=== PATIENT | male | born 1955 | race Caucasian/White ===

== ENCOUNTER 2024-06-02 10:14 | Inpatient (IN) | payer MEDICARE, SELFPAY ==
[2024-06-02] VITALS (54 sets, daily range): BP systolic 111–236; BP diastolic 30–102; BMI 38.2
[2024-06-02 09:31] LABS: Glucose - Point of Care 140 mg/dl (70-99)
[2024-06-02 09:33] LABS: Glucose - Point of Care 144 mg/dl (70-99)
--- NOTE | 2024-06-02 09:33 | ED.CVA ---
History of Present Illness
General
Chief Complaint: CVA/TIA Symptoms
Source: patient and spouse
Exam Limitations: none
Time Seen by Provider: 06/02/24 09:25
Nursing documentation reviewed up to this point in time: agreed with
Onset of Stroke Symptoms
Onset of symptoms known: No
Time pt last seen normal is known: Yes
Date last time pt seen normal: 06/01/24
Time last time pt seen normal: 22:00
History of Present Illness
History of Present Illness:
68-year-old male with no reported chronic medical issues presents to the ER with his for evaluation of facial droop, slurred speech, leg weakness. Patient reports that he was in his normal state of health when he went to bed last night around
10 PM. This morning he woke up at 6:30 AM to walk his dogs. He noticed that he was having some numbness and drooping on the left side of the face. He says he had some heaviness in his left leg. He noticed his speech was slightly slurred. He
thought that perhaps it was related to the position he was sleeping in and so he went to walk the dogs and when his symptoms were not improving he disclosed to his who brought him to the ER to be evaluated. He denies any weakness or numbness
in the left arm. Denies any headache. Denies any loss of vision. Denies any dizziness. He denies any other complaints. Does not take any medications.
Review of Systems
Review of Systems
All Other Systems: ROS reviewed and negative except as documented in HPI and ROS
Respiratory: Denies trouble breathing
Cardiac: Denies chest pain or palpitations
ABD/GI: Denies abdominal pain
: Denies flank pain
Musculoskeletal: Denies neck pain or back pain
Neurological: Reports other (Facial droop, speech slurred, left leg weakness); Denies dizzy or headache
Phy Exam
Physical Exam
Physical Exam:
General: Awake, alert, oriented x3
Head: Normocephalic, atraumatic
Eyes: Conjunctiva normal, EOMI, pupils equal round and reactive to light bilaterally
Throat: Airway intact, handling secretions
Neck: Trachea midline, supple without meningismus
Lungs: Clear to auscultation bilaterally, no wheezing, rales, rhonchi
Heart: Regular rate and rhythm, no murmurs, gallops, or rubs
Abd: Soft, non distended, nontender
Neuro: Patient has left facial droop spares the forehead; cranial nerves otherwise intact; mild dysarthria no aphasia noted; no limb ataxia noted; he has some drift in the left lower extremity but strength otherwise intact in the upper extremities
and in the right lower extremity; sensory exam grossly intact in all extremities
Skin: no rash
Extremities: Warm and well-perfused
Scores
NIH Stroke Score
Level of Consciousness: 0 - Alert
LOC Questions: 0-Answers both correctly
LOC Commands: 0-Performs both correctly
Best Horizontal Gaze: 0-Normal
Visual Steward: 0=Normal, no visual loss
Facial Palsy: 1=Minor paralysis
Motor - Right Arm: 0=No drift 10 seconds
Motor - Left Arm: 0=No drift 10 seconds
Motor - Right Le-No drift 5 seconds
Motor - Left Le-Drift < 5 seconds
Limb Ataxia: 0-Absent
Sensation: 0-Normal
Best Language: 1-Mild aphasia
Dysarthria: 0-Normal
Extinction and Inattention: 0-No abnormality
Total Score:: 3
Thrombolytic Contraindication
Inclusion and Exclusion criteria reviewed: Yes
Reasons for NON-Tx with Thrombolytics ABSOLUTE Exclusions: Greater than 4.5 hrs from onset of sxs and Evidence of intracranial hemorrhage on pre-treatment CT head
Heart Failure Risk
Heart Failure Risk Score: Not Applicable
Heart Score for Chest Pain Patients
STEMI patient?: Not applicable
Withdrawal Assessment of Alcohol
Withdrawal Assessment Completed?: Not applicable
Course
Orders/Labs/Results
Orders:
Orders
06/02/24 09:26
Electrocardiogram (*1) Stat
Reason for Study: Other
Other Reason for Exam: neuro symptoms
CT HEAD STROKE ALERT W/o Cont Urgent
Comment:
Reason For Exam: left facial droop, slurred speech, LLE weaknesss
Bedside Glucose- Treatment ONCE
Cardiac Monitoring- Treatment ONCE
EKG- Treatment ONCE
IV Insert/Care/Rem.- Treatment PRN
Labetalol HCl [Trandate] 10 mg IV NOW STA
06/02/24 09:27
NEUROLOGY CONSULT Urgent
Consulting Provider: Greer Reed
Was physician already notified: Yes
06/02/24 09:29
Complete Blood Count/With Diff Urgent
Comprehensive Metabolic Panel Urgent
06/02/24 09:40
Hemoglobin A1c [Glycohemoglobin (HgbA1c)] Urgent
Lipid Profile [Cardiovascular Evaluation] Urgent
06/02/24 09:43
Nicardipine 40 mg/200 ml [Cardene] 40 mg in 200 ml .ROUTE .STK-MED
Nicardipine 40 mg/200 ml [Cardene] 40 mg in 200 ml IV NOW
Initial dose in mg/hr, then titrate:: 5
Titrate to keep:: SBP 120 - 140 mmHg
Titrate by mg/hr:: 2.5 mg/hr
Frequency of titrations (minutes):: 5-15 minutes
Maximum dose in mg/hr:: 15
Begin to taper infusion when:: Remained at goal for 2hrs
Taper by mg/hr:: 2.5 mg/hr
Frequency of taper (minutes) if patient maintains goal:: 15-30 minutes
Taper to off?: Yes
If infusion off & no longer maintaining goal:: Contact Provider
Abnormal Lab Results
06/02/24 06/02/24 06/02/24
09:29 09:31
RBC 4.69 L 10^6/uL
(4.70-6.10)
MCV 96.8 H fL
(80.0-94.0)
MCH 36.0 H pg
(27.0-31.0)
MCHC 37.2 H g/dL
(33.0-37.0)
POC Glucose 140 H mg/dl 144 H mg/dl
(70-99) (70-99)
06/02/24 09:29
Vital Signs
Initial and Last Documented VS:
Initial Vital Signs
Temp Pulse Resp BP Pulse Ox
37.1 C 88 16 236/100 96
06/02/24 09:22 06/02/24 09:22 06/02/24 09:22 06/02/24 09:22 06/02/24 09:22
Last Documented Vital Signs
Temp Pulse Resp BP Pulse Ox
37.1 C 88 16 236/100 96
06/02/24 09:22 06/02/24 09:22 06/02/24 09:22 06/02/24 09:22 06/02/24 09:22
MDM/Problems Addressed
Differential Diagnosis Includes:
Stroke, brain bleed, complex migraine, seizure, hypertensive crisis
MDM/Problems Addressed:
68-year-old male with history as noted presents for evaluation of facial droop with left leg weakness, slurred speech. Last normal at 10 PM before bed last night, woke up with symptoms at 6:30 AM. Severely hypertensive 236/100 otherwise normal
vitals. Physical exam as above. Stroke alert called on arrival. Assessed at bedside in consultation with neurology. Will take directly for CT head as well as a CTA head and neck. Will check usual lab work, EKG. Treat with labetalol for severe
hypertension. NIH stroke scale was 3, unfortunately with wake-up stroke outside window for tenecteplase�hold on thrombolytics per neurology. Will monitor closely reassess after the above.
CT reviewed in real-time with neurology�concerning for basal ganglion intraparenchymal hemorrhage. Still hypertensive after labetalol; will start Cardene drip for blood pressure control. Per hospital guidelines with no intraventricular hemorrhage,
normal GCS not on anticoagulants small basal ganglia bleed will plan to admit to the ICU here. Discussed case with hospitalist.
Acute Exacerbation and/or Progression of Chronic Illness:
Acutely hypertensive treated with labetalol
*Radiology
Radiology exam reviewed: radiology read reviewed
*Pulse Oximetry
Patient hypoxic: no
*EKG
Interpreted by ED Provider?: Yes
Heart Rate: 74
Rate: normal
Rhythm: sinus
[place]: left axis deviation
Interval: long QT
QRS Pattern: left vent hypertrophy
Ischemia: other (Nonspecific T wave abnormalities)
*Critical Care Note
Total Time (30-74mins, 75-104mins- exclusive of procedures): 30
comment:
Critical care statement: A total of 30 minutes of critical care time was provided for this patient. This includes management of unstable vital signs, evaluation of the patient at bedside, frequent reassessment, discussion with
consultants/hospitalist, and review of pertinent medical records. This time was separate from time utilized to perform any aforementioned documented procedures
Data Reviewed
Source: patient and spouse
Prescriptions/Medications Considered But Not Given:
Considered tenecteplase as above
Patient Management
Discussion with other providers: Hospitalist (Discussed with hospitalist), Credit Verifier (Discussed with neurology) and Radiologist (Discussed with radiology)
Escalation/DeEscalation of care consider admission/obs:
Admission indicated
Update Note
Update Note:
ED Attending Note
-
Portions of this chart may have been created with voice recognition software.� Occasional wrong word or��sound alike� substitutions may have occurred due to the inherent limitations of voice recognition software.
Discharge Plan
Departure
Patient Disposition: Admit
Date of Disposition: 06/02/24
Time of Disposition: 09:53
Admit to: ICU
Admit to doctor: Janay
Presentation/result/management discussed w/ accepting MD/DO: Hospitalist
Discharge Problem:
Intraparenchymal hemorrhage of brain, Hypertension, Hemorrhagic stroke
Prescriptions:
No Action
No Current Medications
0
Interventions
Interventions:
*Risk Screen - Suicide Last Done: 06/02/24 09:22
*General Assessment Last Done: 06/02/24 09:24
*ED COVID-19 Vaccine History Last Done: 06/02/24 09:22
ED- Pulmonary Assessment Last Done: 06/02/24 09:53
ED- Neurological Assessment Last Done: 06/02/24 09:31
ED- Cardiac Assessment Last Done: 06/02/24 09:52
Discharge Date and Time
Print Language: AFGHAN
[2024-06-02] MEDS: TRANDATE 10 MG IV (09:35)
[2024-06-02 09:43] LABS: % Basophils 0.5 % (0-2); % Eosinophils 1.1 % (0-6); % Immature Granulocytes 0.2 % (0-0.5); % Lymphocytes 28.2 % (20.5-51.1); % Monocytes 6.6 % (1.7-9.3); % Neutrophils 63.4 % (42.2-75.2); Absolute Eosinophils 0.1 10^3/uL (0-0.7); Absolute Lymphocytes 2.4 10^3/uL (1.2-3.4); Absolute Monocytes 0.6 10^3/uL (0.1-0.6); Absolute Neutrophils 5.3 10^3/uL (1.4-6.5); Hematocrit 45.4 % (39.0-52.0); Hemoglobin 16.9 g/dL (13.0-18.0); Mean Corp Hgb Conc. 37.2 g/dL (33.0-37.0); Mean Corpuscular Volume 96.8 fL (80.0-94.0); Mean Platelet Volume 8.4 fL (7.4-10.4); Nucleated Red Blood Cells % 0 % (-); Platelet Count 206 10^3/uL (130-400); Red Blood Cell Count 4.69 10^6/uL (4.70-6.10); Red Cell Dist. Width 11.9 % (11.5-14.5); White Blood Cell Count 8.4 10^3/uL (4.8-10.8)
[2024-06-02] MEDS: CARDENE 200 IV ×2 (09:51→16:50)
--- NOTE | 2024-06-02 10:12 | HPS.HSE ---
Family Physician
-
Family Physician: INTERVIEWE UNKNOWN - PT NOT
Chief Complaint
-
Left facial droop
History of Present Illness
60-year-old male with no past medical history on no medications at home who presents with a chief complaint of right facial droop. The patient woke up this morning with a left facial droop and difficulty speaking due to the left facial droop.
Patient denies any left-sided weakness although the patient's reports that his left lower extremity was weak. He denies chest pain, shortness of breath, headache, lightheadedness, nausea, vomiting, diarrhea. No other acute symptoms.
Medical History
Past Medical History
Past Medical History: Reports None
Past Surgical History: Reports Other (N/A)
Social History
Tobacco: Former Smoker
Alcohol: Occasional
Drug: None
Family History
Family History: Not pertinent
Allergies / Home Medications
Allergies reflects when Allergies were last updated in [employer].
Home Medications with original date entered in [employer]
Allergy/Medication List:
Allergies
Allergy/AdvReac Type Severity Reaction Status Date / Time
No Known Allergies Allergy Unverified 06/02/24 09:24
Home Medications
No Meds [No Current Medications] 06/02/24
Review of Systems
-
History Source: Patient
A 12 point ROS was completed and negative except as noted: Yes
Physical Exam
Vital Signs
Vital Signs
Temp Pulse Resp BP Pulse Ox
98.8 F 79 32 206/81 91
06/02/24 09:22 06/02/24 10:00 06/02/24 10:00 06/02/24 10:00 06/02/24 10:00
Physical Exam
General: Other (.)
Laboratory Results
-
06/02/24 09:29
Impression/Plan
-
Gen: NAD, AAOx3.
Eyes: EOMI, PERRLA, no scleral icterus.
Neck: supple.
CV: RRR, +S1/S2, no m/r/g.
Resp: CTAB, no rales, wheezes, or rhonchi.
Abd: +BS, soft, NT, ND
Skin: No rashes.
Neuro: L-facial droop. 5/5 x 4
Psych: Normal mood and affect.
CT brain: Acute intraparenchymal hemorrhage of the posterior right lentiform nucleus and posterior limb of the right internal capsule.
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
-IV labetalol given
-Nicardipine drip started in the ER, continue with goal SBP < 185
-start statin
-check MRI/A head/neck
-check echo
-tele
-neurochecks
-Neurology following
-ICU placement
FULL/SCDs
Total critical care time spent = 38 min
--- NOTE | 2024-06-02 10:17 | CON.NEURO ---
Consultation
Order
Date of Consultation: 06/02/24
Requesting Provider:
Reason for Consult: Stroke alert
Called in at 9:28 AM
Neurology Consultation Note.
HPI: This is a 68-year-old right-handed man who presented to [facility] on 06/02/2024 with left facial weakness and dysarthria.
Mr. Peng developed an acute left-sided facial weakness around 6:30 AM today. He was able to walk his dogs at around 9 AM noted left leg heaviness and dysarthria. No reports of headaches, change in vision or sensory deficit
According to patient's Mr. Peng has not been taking any medications regularly. The patient's reports that he is usually healthy and rarely seeks medical attention. Of note, the patient drove himself to the medical facility despite his
symptoms.
ER VS: 237/100, 88, 16�32 afebrile
EKG: NSR, QTc Int : 472 ms
PDMP: none
Labs: Glucose�144, normal WBCs, platelets
CT head wo contrast-acute 1.1 x 0.9 x 2.1 cm right lentiform nucleus and posterior limb of the right internal capsule intraparenchymal hemorrhage with mild surrounding vasogenic edema. Mild subcortical, deep, and periventricular white matter
low-attenuation, compatible with changes of chronic small vessel ischemic disease.
PMH: No prior medical care
PSH: [place] teeth extraction
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
FH: Mother of natural causes, father had cancer
All:NKDA
ROS: Positive for left facial weakness, dysarthria. Negative for headache, change in vision or sensation.
General: Well developed. In no acute distress.
Cardio: Regular rate. Extremities are without cyanosis or edema.
Neuro:
Mental Status: Alert, oriented to person, place, and date. Follows complex requests. Comprehension, naming, and repetition intact. Anxious mood.
Cranial Nerves: Pupils are equally round and reactive to light. EOMs full. Visual fan full to confrontation. No ptosis. No nystagmus. L CN VII weakness. Normal hearing AU. The palate elevated well. SCMs and traps 5/5. Tongue midline.
Mild dysarthria.
Motor: No pronator or leg drift drift
Sensory: Normal vibration at the toes
Coordination: No dysmetria
Gait: deferred
Assessment and Plan:
I. Acute right lentiform nucleus/posterior limb of the right internal capsule intraparenchymal hemorrhage. 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
II. Hypertensive emergency
III. Cerebral microvascular disease
- ICU care
- NPO
- AHA guidelines recommend lowering systolic SBP to <160 mmHg
- Treat persistently elevated MAP>110 with Labetalol IV
- Maintain elevation of HOB 30-45 degrees
- Continuous monitoring using pulse oximetry if O2�saturation is <96%
- Normal saline should be used for maintenance and replacement fluids.
- If elevated intracranial pressure is suspected or herniation is apparent in imaging- hyperventilate to maintain pCO2�25mm for a maximum length of time of 6 hours; Osmotic diuresis using Mannitol: load 1g per kg IV bolus and maintain on 0.5g per kg
IV Q6h; check serum osmolality 1 hour prior to each dose.���Dose should be held if serum osm>310.
- CTA head
- Brain MRI without cherise
- TTE
- SCD/KYLIE
- Case was discussed with patient's spouse
�
I personally reviewed all radiology and labs along with past medical records pertinent to current medical problems. Total time spent in patient care is 60 minutes.
Thank you for allowing us to participate in the care of this patient. We will continue to follow. Please do not hesitate to contact us with any questions or concerns.
Subjective/Objective
Subjective Data
Date of Service: June 02, 2024
Objective Data
Vital Signs
Temp Pulse Resp BP Pulse Ox
37.1 C 79 32 208/80 91
06/02/24 09:22 06/02/24 10:00 06/02/24 10:00 06/02/24 10:10 06/02/24 10:00
Lab Results
06/02/24 09:29
Patient Allergies
No Known Allergies Allergy (Unverified 06/02/24 09:24)
Medications
-
Home Medications
�Medication �Instructions �Recorded
No Meds [No Current Medications] 06/02/24
Vital Signs and Labs
-
Vital Signs and Labs:
Vital Signs
Temp Pulse Resp BP Pulse Ox
37.1 C 79 32 208/80 91
06/02/24 09:22 06/02/24 10:00 06/02/24 10:00 06/02/24 10:10 06/02/24 10:00
Lab Results
06/02/24 09:29
Home Medications
-
Home Medications
No Meds [No Current Medications] 06/02/24
[2024-06-02 10:24] LABS: Alkaline Phosphatase 78 U/L (38-126); Blood Urea Nitrogen 15 mg/dl (9-20); Calcium 9.5 mg/dl (8.4-10.2); Carbon Dioxide 25 mmol/L (22-30); Chloride 104 mmol/L (98-107); Glucose 148 mg/dl (70-99); Potassium 4.1 mmol/L (3.5-5.1); Sodium 142 mmol/L (135-145); eGFR > 60.00
[2024-06-02 10:25] LABS: ALT (SGPT) 49 U/L (0-50); AST (SGOT) 39 U/L (17-59); Albumin 4.6 g/dl (3.5-5.0)
--- NOTE | 2024-06-02 10:40 | PTCARENOTE ---
arrived to ICU 3370 via ED stretcher, neuro handoff done, monitored. CHG bath given. No distress. NIHSS scord obtained, 2. Seen by Dr. Bear.
--- NOTE | 2024-06-02 10:47 | CON.INTV ---
Consultation
Consultation Request
Date/Time Consultation Requested: 06/02
Date/Time Consultation Performed: 06/02
Reason for Consultation: Critical care
Medical History
-
History of Present Illness:
History is obtained from the patient, ED records, at bedside. Patient is a 68-year-old male without any significant medical history, who was in his usual state of health until he woke up this morning. He states he woke up around 630, had some
issues with his speech but did not think anything of it. He went to walk his dog. Upon returning from walking his dog somewhere between 645 and 7 in the morning, he spoke with his and his and noted that his speech was slightly slurred.
His also notes that he had a little bit of a limp and was not walking properly with left-sided leg weakness. When asked about this, patient attributed to chronic knee pain but disagrees. Throughout this patient denies any headaches,
vision changes, nausea, emesis, abdominal pain, falls, syncope, leg pain, fevers, blood in urine or stool. Upon arrival to [facility] (patient drove himself), afebrile, pulse 88, breathing at 16, blood pressure 236/100, 96%. Patient was
noted to have left facial droop and left leg weakness with slurred speech. Last normal symptoms were 10 PM the night before. Head CT revealed small rt basal ganglia intraparenchymal hemorrhage. NIH score 3. Stroke alert called, patient seen by
neurology. Patient was given labetalol, still with hypertension, started on Cardene drip admitted to ICU for further management
Presently, patient is without any symptoms, except some mild numbness around his left lip and numbness in the cheek. Neuroexam otherwise normal per my review, he has no left lower extremity weakness
Patient denies any prior cardiac or blood pressure issues. He does not check his blood pressure at home although he does have a cough. He states he is under a lot of stress over the past couple of years as his has had ongoing orthopedic
issues, multiple joint surgeries
.
PMH: Strongly suspected sleep apnea otherwise no past medical history. Patient has not seen his primary physician for many years ([facility])
Past Medical History
Past Medical History: None (See above)
Past Surgical History: None (See above)
Social History
Tobacco: Former Smoker (Quit 6 months ago, suspect 25+ pack-year history, smokes since age of 20)
Alcohol: Occasional
Drug: None
Personal:
Living: With Family
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
Family History
Family History: Other (No children. Sister from breast cancer, 2 of his siblings alive. Mother from breast cancer the eighth decade, father at 79. Family history negative for blood clots)
Allergies / Home Medications
Allergies
Allergy/AdvReac Type Severity Reaction Status Date / Time
No Known Allergies Allergy Unverified 06/02/24 09:24
Home Medications
�Medication �Instructions �Recorded �Confirmed �Last Taken �Type
No Meds [No Current Medications] 06/02/24 06/02/24 Unknown History
Review of Systems
-
All other systems: Negative unless noted ( states that patient does have witnessed Apneas and gasping in the middle the night)
Vitals / Labs / Diagnostic Testing
Vital Signs
Temp Pulse Resp BP Pulse Ox
98.8 F 76 25 188/71 92
06/02/24 09:22 06/02/24 10:20 06/02/24 10:20 06/02/24 10:20 06/02/24 10:20
Lab Data
06/02/24 09:29
06/02/24 09:29
Diagnostic Testing:
Physical Exam
-
HEENT: Normocephalic, Anicteric and Other (Large neck, narrow posterior oropharynx, pupils are equal and reactive)
Cardiovascular: S1/S2, Regular Rhythm, Murmur (n), Rub, Peripheral Edema (1+) and Other (Mild chronic venous stasis changes)
Respiratory: Wheeze (n), Rales (n), Rhonchi (n) and Non-Labored Respirations
GI: Soft, Non Distended (Obese) and Non Tender
Neurology: AO x 3 and No Motor Deficits (Moves all extremities, muscle strength equal, no arm or leg drift. Mild left facial droop, mild numbness perioral on the left side)
Skin: Other (Mild erythema lower extremities, no warmth, mild dry skin)
General: Comfortable
Assessment
-
68-year-old male without past medical history but suspected sleep apnea, likely hypertension, does not follow-up with primary presents with waking up at 6:30 in the morning with difficulty with speech. He went to bed at 10 PM without any issues.
He walked the dog, then returned home and upon speaking to his , confirmed speech issues. also confirmed left leg weakness with difficulty with gait. Patient drove himself to [facility]. Upon arrival, systolic blood pressure
236, head CT with acute hemorrhagic stroke, right basal ganglia. Patient given labetalol x 1, started on Cardene drip, admitted to ICU for further management. Upon arrival to ICU, systolic pressure 150s/90s, MAP 91-106
Acute intraparenchymal hemorrhagic stroke 2.1 cm
Right basal ganglia, mild surrounding edema
No mass effect
Acute dysarthria, upon awakening 6:30 AM
Last known nl sxs around 10 PM
Hypertensive emergency
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
Mild hyperglycemia
Conditions present prior to admission
Strongly suspected sleep apnea
25py history of smoking, quit 2023
Family history of breast cancer (sister, mother)
Plan/recommendations
At this time, patient remains critically ill but stable
He is without headaches, denies any symptoms except mild numbness around his left lip
There is no muscle weakness, cranial nerves otherwise unremarkable, pupils equal and reactive
CT findings reviewed
Unclear onset of symptoms as patient went to bed at 10 PM without issues, woke up at 630 am in the morning with speech issues
Despite systolic pressure of 236 at time of presentation, patient without any headaches or other symptoms
Moving forward
Continue with close monitoring of neurosymptoms and blood pressure management
Patient presently on Cardene drip, systolic pressure 154, MAP 91
Target systolic pressure 140-160 over the next few hours
Although patient downplays left leg weakness to joint pains, confirmed left leg weakness at home which is not normal
There is no leg weakness on exam at this time
Continue frequent blood pressure monitoring
Depending on lability, may require A-line
Follow blood sugars, sliding scale
Maintain n.p.o.
Maintain head of bed elevated
Mechanical DVT prophylaxis
Await repeat imaging
CT angiogram of head, brain MRI
Echocardiogram
Reviewed at length with spouse at bedside
Reviewed with critical care nursing, primary service, neurology
TCCT 35 min
[2024-06-02 10:51] LABS: INR 0.97; PT 13.4 Sec (11.4-14.6)
[2024-06-02 10:52] LABS: APTT 31.3 Sec (23.4-35.0)
[2024-06-02 10:53] LABS: HDL Cholesterol 43 mg/dl; LDL Cholesterol, Calculated 109 mg/dl; Total Cholesterol 193 mg/dl (50-199); Triglyceride 206 mg/dl (10-149); Very Low Density Lipoprotein 41 mg/dl (0-30)
[2024-06-02 11:16] LABS: Glycohemoglobin (HgbA1c) 5.6 % (4.0-5.6)
[2024-06-02 11:18] LABS: Estimated Creatinine Clearance > 125 ml/min
--- NOTE | 2024-06-02 11:59 | PTCARENOTE ---
titrating cardene, speech therapist bedside. No other change. Alert, conversant, denies headache.
--- NOTE | 2024-06-02 14:34 | PTCARENOTE ---
back from MRI and CTA/CT scan. bed changed. no neuro change. presently echo in progress.
--- NOTE | 2024-06-02 15:00 | CARDSERVLU ---
Echocardiogram with [facility] completed after protocol screening completed. Allergies verified.
Patent IV site: __R AC___
IV site flushed with 0.9% NaCl pre and post administration.
Diluted bolus method utilized to enhance visualization of ventricular [place]zada.
Total volume given: __1.5__ mL
Patient tolerated all procedures well without complications.
--- NOTE | 2024-06-02 15:24 | PTOTSP ---
INVESTMENT BANKING ASSOCIATE Evaluations
Signs concerning for at least mild oral/pharyngeal dysphagia and possible aspiration with dry solids and thin liquids via cup.
At least mild dysarthria with 100% intelligible speech to unfamiliar listener.
Recommend:
1. Regular solids (pick soft/moist foods), Thin Liquids; avoid mixed consistencies
2. Medications: whole and/or crushed in puree
3. Strategies: upright to 90 degrees, place utensil on right side of mouth, small single sips/bites, slow rate, check for oral clearance of left; D/C if increased signs of dysphagia/aspiration
4. Oral care 3x daily
5. Video swallow study if/when medically cleared
6. Motor speech therapy at the acute level and after D/C. Further evaluation as able/appropriate.
[2024-06-02] MEDS: LIPITOR 40 MG PO (16:59)
[2024-06-02] MEDS: TYLENOL 650 MG PO (16:59)
[2024-06-02 17:27] LABS: Amphetamines Negative (Negative); Barbiturates Negative (Negative); Benzodiazepines Negative (Negative); Buprenorphine Negative (Negative); Cocaine Negative (Negative); Marijuana Negative (Negative); Methadone Negative (Negative); Methamphetamines Negative (Negative); Opiates Negative (Negative); Phencyclidine Negative (Negative); Tricyclic Antidepressants Negative (Negative)
[2024-06-02] MEDS: FOLVITE 1 MG PO (17:34)
--- NOTE | 2024-06-02 18:49 | PTCARENOTE ---
2 RN and RW, oob to recliner, stood later to place underpad. L leg 'heavier', gait slightly unsteady, agreeable comfortable and cooperative to ring for assistance. Has not been impulsive. family remains bedside. Ate dinner in chair, able to feed
self. med with tylenol earlier, does note perhaps increase in comfort at present. titrating cardene given parameters.
[2024-06-02] MEDS: VITAMIN B1 100 MG PO (19:42)
--- NOTE | 2024-06-02 20:43 | PTCARENOTE ---
Received pt from previous RN. Pt is AAOx3, mild slurred speech, left sided facial droop, left sided weakness. NIH 2, neuro checks per protocol (see worklist). NSR on the monitor. Cardene gtt per protocol (see worklist). Pt on RA O2 sat 93%, lungs
diminished @ bases. Abd round/obese. Pt uses the urinal, assists. SCDs in place. Pt OOB in the chair, @ bedside. Safe environment maintained.
--- NOTE | 2024-06-02 23:52 | PTCARENOTE ---
Systems reviewed, no new changes in assessment. Neuro check WNL (see worklist). Pt placed on 2L NC O2 sat dips to 88% on RA while asleep, O2 sat 95% on 2L. at bedside. Safe environment maintained.
[2024-06-03] VITALS (52 sets, daily range): BP systolic 120–179; BP diastolic 54–85; PULSE 85; BMI 38.0
--- NOTE | 2024-06-03 03:34 | PTCARENOTE ---
Systems reviewed, no new changes in assessment. AM labs provided. Cardene gtt turned back on @0200 (see worklist). CHG bath provided. Safe environment maintained.
[2024-06-03 03:37] LABS: Hematocrit 41.7 % (39.0-52.0); Hemoglobin 15.3 g/dL (13.0-18.0); Mean Corp Hgb Conc. 36.7 g/dL (33.0-37.0); Mean Corpuscular Hgb 35.9 pg (27.0-31.0); Mean Corpuscular Volume 97.9 fL (80.0-94.0); Mean Platelet Volume 8.5 fL (7.4-10.4); Platelet Count 188 10^3/uL (130-400); Red Blood Cell Count 4.26 10^6/uL (4.70-6.10); Red Cell Dist. Width 11.8 % (11.5-14.5); White Blood Cell Count 8.2 10^3/uL (4.8-10.8)
[2024-06-03 04:01] LABS: Blood Urea Nitrogen 16 mg/dl (9-20); Calcium 9.3 mg/dl (8.4-10.2); Carbon Dioxide 26 mmol/L (22-30); Chloride 105 mmol/L (98-107); Estimated Creatinine Clearance > 125 ml/min; Glucose 124 mg/dl (70-99); HDL Cholesterol 39 mg/dl; LDL Cholesterol, Calculated 109 mg/dl; Potassium 3.9 mmol/L (3.5-5.1); Sodium 141 mmol/L (135-145); Total Cholesterol 181 mg/dl (50-199); Triglyceride 165 mg/dl (10-149); Very Low Density Lipoprotein 33 mg/dl (0-30); eGFR > 60.00
[2024-06-03] MEDS: CARDENE 200 IV ×3 (07:16→21:34)
--- NOTE | 2024-06-03 07:23 | PTCARENOTE ---
recd pt. ordered breakfast. family bedside. BP noted, checked large cuff LA, then long cuff bilat, no significant difference. restarted cardene as ordered. neuro handoff completed.
--- NOTE | 2024-06-03 07:45 | W.PN.INTV ---
Today's Communication / Plan
Recommendations
Continue Cardene, wean as able
Start lisinopril, target normotension
Statin therapy
Aspiration precautions
Mechanical DVT prophylaxis
Out of bed to chair, hold off on ambulation for now per neurology recommendations
Thiamine/folate
Eventual outpatient sleep disorder workup
Assessment
-
68-year-old male without past medical history but suspected sleep apnea, likely hypertension, does not follow-up with primary presents with waking up at 6:30 in the morning with difficulty with speech. He went to bed at 10 PM without any issues.
He walked the dog, then returned home and upon speaking to his , confirmed speech issues. also confirmed left leg weakness with difficulty with gait. Patient drove himself to [facility]. Upon arrival, systolic blood pressure
236, head CT with acute hemorrhagic stroke, right basal ganglia. Patient given labetalol x 1, started on Cardene drip, admitted to ICU for further management. Upon arrival to ICU, systolic pressure 150s/90s, MAP 91-106
Acute intraparenchymal hemorrhagic stroke 2.1 cm
Right basal ganglia, mild surrounding edema
No mass effect
Stable per CTA and brain MRI
Acute dysarthria, upon awakening 6:30 AM
Last known nl sxs around 10 PM
Hypertensive emergency
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
Mild hyperglycemia
Conditions present prior to admission
Strongly suspected sleep apnea
25py history of smoking, quit 2023
Family history of breast cancer (sister, mother)
Plan/recommendations
At this time, patient remains critically ill but stable, blood pressure stabilized between systolic 140s and 160s
Patient denies headaches
NIH remains 2, left facial droop
No muscle weakness on exam but with standing, patient feels left leg is heavy
Moving forward
Continue with close monitoring of neurosymptoms and blood pressure management
Patient presently on Cardene drip, s on and off through the night
Target systolic normotension moving forward
Start NATHAN inhibitor
Wean Cardene as able, target normotension
Remains on statin therapy
Brain MRI with stable hemorrhagic lesion 2.[address] angiogram without vascular abnormality
Carotid studies pending
Echocardiogram normal
Follow blood sugars, sliding scale
Diet advanced, aspiration precautions
Maintain head of bed elevated
Appreciate speech and swallow evaluation
Discussed at length likelihood of significant sleep disordered breathing with may be contributing to comorbidities
Strongly recommend outpatient sleep study.
Reviewed at length risks and ramifications of untreated sleep apnea
Mechanical DVT prophylaxis
Reviewed at length with spouse at bedside
Reviewed with critical care nursing, pharmacy, respiratory care
TCCT 31 min
Subjective Dataa
Subjective Data
Date of Service:
Date of Service: June 03, 2024
Subjective:
Patient remains critically ill on Cardene drip but stable without symptoms. Denies headaches, shortness of breath, chest pain, swallowing issues. Continued left facial droop with mild dysarthria. Patient is sitting in chair, at bedside
Objective Data
Data Reviewed
Vital Signs / I&O / Oxygen:
Vital Signs
Temp Pulse Resp BP Pulse Ox
97.5 F 74 23 179/77 92
06/03/24 07:05 06/03/24 07:12 06/03/24 07:12 06/03/24 07:12 06/03/24 07:12
Intake and Output
06/02/24 06/03/24 06/04/24
06:59 06:59 06:59
Intake Total 1465.0 / 1465.0
Output Total 1075 / 1075
Balance 390.0 / 390.0
SaO2 92
Physical Exam
General: Comfortable and Other (Large neck, left facial droop)
HEENT: Normocephalic and Anicteric
Cardiovascular: S1-S2, Regular Rhythm, Murmur (n) and Rub (n)
Respiratory: Wheeze (n), Crackles (n), Rhonchi (n) and Non-Labored Respirations
GI: Soft, Non Distended (Obese) and Non Tender
Neurology: Awake, Alert and No Motor Deficits (Left facial droop. Muscle strength 5/5)
Skin: Good Color, Cyanosis (n), Jaundice (n) and Rash (Chronic venous stasis changes lower extremity)
Labs/Micro/Reports
Lab Data
06/03/24 03:27
06/03/24 03:27
Laboratory Results
06/02/24
10:28
PT 13.4
INR 0.97
APTT 31.3
[2024-06-03] MEDS: VITAMIN B1 100 MG PO ×2 (08:14→19:15)
[2024-06-03] MEDS: FOLVITE 1 MG PO (08:14)
--- NOTE | 2024-06-03 09:21 | W.PN.HOSP.TC ---
Today's Communication/Plan
-
see plan
Assessment / Plan
Assessment / Plan
Gen: NAD, AAOx3.
Eyes: EOMI, PERRLA, no scleral icterus.
Neck: supple.
CV: remains RRR, +S1/S2, no m/r/g.
Resp: remains CTAB, no rales, wheezes, or rhonchi.
Abd: +BS, soft, NT, ND
Skin: No rashes.
Neuro: L-facial droop. 4/5 LUE/LLE
Psych: Normal mood and affect.
CT brain: Acute intraparenchymal hemorrhage of the posterior right lentiform nucleus and posterior limb of the right internal capsule.
Echo: Normal left ventricular size with hyperdynamic systolic function. LVEF 75%. Mild concentric left ventricular hypertrophy. Mild aortic regurgitation. Dilated aortic root of 4.3 cm. No prior study available for comparison.
MRI brain: Focal area of acute intracranial hemorrhage on the right, at the junction of the posterior aspect of the right lentiform nucleus and the posterior limb of the right internal capsule. This appears similar to CT examination from earlier
this same date. Small rim of surrounding edema.
CTA brain: Stable small acute right intracranial hemorrhage as described above. No definitive aneurysm nor vascular abnormality noted.
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
-UDS NEG
-IV labetalol given in ER followed by Nicardipine gtt with goal SBP 140-160
-all imaging above
-cont statin
-BP has improved, most recent BP 152/57. Will attempt to wean of nicardipine gtt today via initiation of PO antihypertensives
Other problems:
Obesity due to excess calories
Alcohol use: Pt reports 10 drinks/week. cont thiamine/folate.
Pt's updated at bedside.
FULL/SCDs
Anticipated Discharge: 24 - 48 hours
Subjective/Interval History
-
Date of Service: June 03, 2024
Objective Data
-
Labs:
Laboratory Results
06/03/24
03:27
WBC 8.2
Hgb 15.3
Hct 41.7
Plt Count 188
Sodium 141
Potassium 3.9
Chloride 105
Carbon Dioxide 26
BUN 16
Creatinine 0.7
Glucose 124 H
Calcium 9.3
Vital Signs:
Vital Signs
Temp Pulse Resp BP Pulse Ox
97.5 F 75 26 165/84 92
06/03/24 07:05 06/03/24 08:00 06/03/24 08:00 06/03/24 08:00 06/03/24 08:00
I&O
06/02/24 06/03/24 06/04/24
06:59 06:59 06:59
Intake Total 1465.0 / 1465.0
Output Total 1075 / 1075
Balance 390.0 / 390.0
--- NOTE | 2024-06-03 10:34 | W.PN.NEURO.1 ---
Today's Communication / Plan
-
.
Subjective/Objective
Subjective Data
Date of Service: June 03, 2024
Neurology follow-up note.
Mr. Peng reports stable left facial weakness and dysarthria. He was able to ambulate with a walker. No reports of headaches. Blood pressure has improved
Brain MRI showed no evidence of acute infarcts in addition to known basal ganglia hemorrhage.
TTE-no evidence of PFO or intra cardiac thrombus
LDL�109, hemoglobin A1c�5.6, U-Tox�negative.
CTA head�a bulbous appearance to the basilar tip, no evidence of aneurysm or malformations.
PMH: R BG ICH(06/2024), HTN, BMI 38.
PSH: Surprise teeth extraction
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
FH: Mother of natural causes, father had cancer
All:NKDA
ROS: Positive for left facial weakness, dysarthria. Negative for headache, change in vision or sensation.
General: Well developed. In no acute distress.
Cardio: Regular rate. Extremities are without cyanosis or edema.
Neuro:
Mental Status: Alert, oriented to person, place, and date. Follows complex requests. Comprehension, naming, and repetition intact. Anxious mood.
Cranial Nerves: Pupils are equally round and reactive to light. EOMs full. Visual fan full to confrontation. No ptosis. No nystagmus. L CN VII weakness. Normal hearing AU. The palate elevated well. SCMs and traps 5/5. Tongue midline.
Mild dysarthria.
Motor: Minimal left arm drift. The rest of the strength�5 out of 5
Sensory: Normal vibration at the toes
Coordination: Normal fine finger movements on the left, no dysmetria
Gait: deferred
Assessment and Plan:
I. Acute right lentiform nucleus/posterior limb of the right internal capsule intraparenchymal hemorrhage. 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
II. Hypertensive emergency
III. Cerebral microvascular disease
- Continue telemetry
- Blood pressure goal�normotension
- Follow-up carotid artery Doppler ultrasound
- SCD/KYLIE
- Case was discussed with patient's spouse
�
I personally reviewed all radiology and labs along with past medical records pertinent to current medical problems. Total time spent in patient care is 36 minutes.
Thank you for allowing us to participate in the care of this patient. We will continue to follow. Please do not hesitate to contact us with any questions or concerns
Objective Data
Vital Signs
Temp Pulse Resp BP Pulse Ox
36.4 C 77 16 152/57 91
06/03/24 07:05 06/03/24 09:00 06/03/24 09:00 06/03/24 09:00 06/03/24 09:00
Lab Results
06/03/24 03:27
06/03/24 03:27
PT 13.4 Sec (11.4-14.6) 06/02/24 10:28
INR 0.97 06/02/24 10:28
APTT 31.3 Sec (23.4-35.0) 06/02/24 10:28
Sodium 141 mmol/L (135-145) 06/03/24 03:27
Potassium 3.9 mmol/L (3.5-5.1) 06/03/24 03:27
BUN 16 mg/dl (9-20) 06/03/24 03:27
Glucose 124 mg/dl (70-99) H 06/03/24 03:27
Calcium 9.3 mg/dl (8.4-10.2) 06/03/24 03:27
LDL Cholesterol, Calc 109 mg/dl 06/03/24 03:27
Ur Buprenorphine Negative (Negative) 06/02/24 17:07
Patient Allergies
No Known Allergies Allergy (Unverified 06/02/24 09:24)
Vital Signs and Labs
-
Vital Signs and Labs:
Vital Signs
Temp Pulse Resp BP Pulse Ox
36.4 C 77 16 152/57 91
06/03/24 07:05 06/03/24 09:00 06/03/24 09:00 06/03/24 09:00 06/03/24 09:00
Lab Results
06/03/24 03:27
06/03/24 03:27
PT 13.4 Sec (11.4-14.6) 06/02/24 10:28
INR 0.97 06/02/24 10:28
APTT 31.3 Sec (23.4-35.0) 06/02/24 10:28
Sodium 141 mmol/L (135-145) 06/03/24 03:27
Potassium 3.9 mmol/L (3.5-5.1) 06/03/24 03:27
BUN 16 mg/dl (9-20) 06/03/24 03:27
Glucose 124 mg/dl (70-99) H 06/03/24 03:27
Calcium 9.3 mg/dl (8.4-10.2) 06/03/24 03:27
LDL Cholesterol, Calc 109 mg/dl 06/03/24 03:27
Ur Buprenorphine Negative (Negative) 06/02/24 17:07
Medications
-
Medications:
Generic Name Dose Route Start Last Admin
Trade Name Freq PRN Reason Stop Dose Admin
Acetaminophen 650 mg 06/02/24 10:49
Acetaminophen 650 Mg Rectal Suppository RECTAL 06/30/24 10:48
Q4HPRN PRN
NUNN, mild pain, or temp >100.4F
Acetaminophen 650 mg 06/02/24 10:49 06/02/24 16:59
Acetaminophen 325 Mg Tablet PO 06/30/24 10:48 650 mg
Q4HPRN PRN Administration
NUNN, mild pain, or temp >100.4F
Atorvastatin Calcium 40 mg 06/02/24 18:00 06/02/24 16:59
Atorvastatin (Lipitor) 40 Mg Tablet PO 06/30/24 17:59 40 mg
QPM WOO Administration
Folic Acid 1 mg 06/02/24 17:00 06/03/24 08:14
Folic Acid 1 Mg Tablet PO 06/30/24 16:59 1 mg
DAILY WOO Administration
Nicardipine/Sodium Chloride 40 mg in 200 mls @ 0 mls/hr 06/02/24 10:49 06/03/24 07:16
Cardene IV 200 mls
PER PROTOCOL WOO Administration
Protocol
Per Protocol
Sodium Chloride 0 flush 06/02/24 11:00
Sodium Chloride 0.9% (Flush) Syringe IV 06/30/24 10:59
PER PROTOCOL WOO
Thiamine HCl 100 mg 06/02/24 20:00 06/03/24 08:14
Thiamine 100 Mg Tablet PO 06/30/24 19:59 100 mg
BID WOO Administration
Home Medications
-
Home Medications
No Meds [No Current Medications] 06/02/24
--- NOTE | 2024-06-03 10:47 | PTCARENOTE ---
used RW and assist to bathroom, complete CHG, gown changed, brushed own teeth. presently back in bed, feeling refreshed.
[2024-06-03] MEDS: ZESTRIL 10 MG PO (12:07)
--- NOTE | 2024-06-03 13:55 | CM ---
CM following re: discharge planning.
Reviewed pt's chart, met with pt.
Pt is a 68 year old male, admitted with primary dx of CVA. Pt has no past medical history.
Pt reports he lives with spouse in a townhouse, 2 steps to enter, has supportive stepson. 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
PT, OT, ST evaluations noted - outpatient therapy recommended. pt is awate and he stated he will come to outpatient therapy.
Please provide a script for outpatient PT, OT, ST.
PCP: Negrito Rodrigues
Pharmacy: [facility]
D/C plan: home with outpatient therapy at and family support. Spouse to transport at discharge.
CM will follow with discharge plan updates as hospitalization progresses
--- NOTE | 2024-06-03 16:00 | PTCARENOTE ---
family visiting, no change, neuro exam remains with facial droop, dysarthria.
[2024-06-03] MEDS: LIPITOR 40 MG PO (18:17)
--- NOTE | 2024-06-03 19:07 | PTCARENOTE ---
Cardene gtt restarted, to keep SBP 120-140 (see worklist and order).
[2024-06-03 19:44] LABS: Hepatitis C Antibody Negative (Negative)
[2024-06-04] VITALS (41 sets, daily range): BP systolic 105–195; BP diastolic 55–86; PULSE 78; O2SAT 94; BMI 38.1
--- NOTE | 2024-06-04 00:16 | PTCARENOTE ---
Systems reviewed, no new changes in assessment. Pt placed on 2L NC when asleep. Neuro checks WNL. Pt assisted x1 w/ RW to the bathroom. Call luong in reach. Safe environment maintained.
[2024-06-04] MEDS: CARDENE 200 IV ×5 (02:35→14:11)
[2024-06-04 03:14] LABS: Hematocrit 43.1 % (39.0-52.0); Hemoglobin 15.6 g/dL (13.0-18.0); Mean Corp Hgb Conc. 36.2 g/dL (33.0-37.0); Mean Corpuscular Hgb 35.8 pg (27.0-31.0); Mean Corpuscular Volume 98.9 fL (80.0-94.0); Mean Platelet Volume 8.4 fL (7.4-10.4); Platelet Count 194 10^3/uL (130-400); Red Blood Cell Count 4.36 10^6/uL (4.70-6.10)
--- NOTE | 2024-06-04 03:18 | PTCARENOTE ---
Systems reviewed, no new changes in assessment. AM labs provided. Pt assisted to the BR x1 w/ RW. Safe environment maintained.
[2024-06-04 04:07] LABS: Blood Urea Nitrogen 18 mg/dl (9-20); Calcium 9.3 mg/dl (8.4-10.2); Carbon Dioxide 26 mmol/L (22-30); Chloride 104 mmol/L (98-107); Estimated Creatinine Clearance > 125 ml/min; Glucose 120 mg/dl (70-99); Potassium 4.1 mmol/L (3.5-5.1); Sodium 142 mmol/L (135-145); eGFR > 60.00
[2024-06-04] MEDS: ZESTRIL 10 MG PO (07:11)
[2024-06-04] MEDS: VITAMIN B1 100 MG PO ×2 (07:11→20:29)
[2024-06-04] MEDS: FOLVITE 1 MG PO (07:12)
--- NOTE | 2024-06-04 07:16 | PTCARENOTE ---
recd pt, assessed in recliner. neuro exam with previous shift, unchanged, NIHSS remains 2, dysarthria and facial droop. speech is occasionally clearer than yesterday. cardene maxed dose, am meds given as ordered early with expectation of meeting
sys bp goal 120-140. perusing menu to order breakfast, call luong in reach.
--- NOTE | 2024-06-04 07:51 | W.PN.INTV ---
Today's Communication / Plan
Recommendations
Antihypertensive therapy continues
Patient ambulating without difficulty in the room
Aspiration precautions, head of bed elevated
Alcohol abstinence/medication is recommended
Reviewed strong suspicion for sleep disordered breathing. Information left in chart for follow-up
For transfer out of ICU. We will sign off. Please call with questions
Assessment
-
68-year-old male without past medical history but suspected sleep apnea, likely hypertension, does not follow-up with primary presents with waking up at 6:30 in the morning with difficulty with speech. He went to bed at 10 PM without any issues.
He walked the dog, then returned home and upon speaking to his , confirmed speech issues. also confirmed left leg weakness with difficulty with gait. Patient drove himself to [facility]. Upon arrival, systolic blood pressure
236, head CT with acute hemorrhagic stroke, right basal ganglia. Patient given labetalol x 1, started on Cardene drip, admitted to ICU for further management. Upon arrival to ICU, systolic pressure 150s/90s, MAP 91-106
Acute intraparenchymal hemorrhagic stroke 2.1 cm
Right basal ganglia, mild surrounding edema
No mass effect
Stable per CTA and brain MRI
Acute dysarthria, upon awakening 6:30 AM
Last known nl sxs around 10 PM
Hypertensive emergency
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
Mild hyperglycemia
Conditions present prior to admission
Strongly suspected sleep apnea
25py history of smoking, quit 2023
Family history of breast cancer (sister, mother)
Plan/recommendations
At this time, patient appears to be doing well, stable
Patient denies headaches
NIH remains 2, left facial droop
No muscle weakness on exam but with standing, patient feels left leg is heavy
For my exam, speech may be slightly better
Blood sugars noted
Moving forward
Continue with supportive care, current management
Wean off Cardene drip, hydrochlorothiazide added. Can also go up on lisinopril dose in the next 24 to 48 hours
Hydralazine as needed
Target systolic normotension moving forward for obvious reasons per neurology
Remains on statin therapy
Brain MRI with stable hemorrhagic lesion 2.[address] angiogram without vascular abnormality
Follow-up carotid studies
Echocardiogram normal
Follow blood sugars, sliding scale
Diet advanced, aspiration precautions
Maintain head of bed elevated
Appreciate speech and swallow evaluation
Discussed at length likelihood of significant sleep disordered breathing with may be contributing to comorbidities
Strongly recommend outpatient sleep study.
Reviewed at length risks and ramifications of untreated sleep apnea
Information left in chart
Mechanical DVT prophylaxis
Reviewed with critical care nursing, pharmacy, respiratory care
For transfer out of ICU. We will sign off. Please call with questions
Subjective Dataa
Subjective Data
Date of Service:
Date of Service: June 04, 2024
Subjective:
Patient is without complaints. He denies chest pain, chest tightness, lightheadedness, dizziness, headaches. He is eating without difficulty, denies choking. Has mild left facial droop. Denies any muscle weakness.
Objective Data
Data Reviewed
Vital Signs / I&O / Oxygen:
Vital Signs
Temp Pulse Resp BP Pulse Ox
98.1 F 68 19 153/60 92
06/04/24 03:21 06/04/24 07:11 06/04/24 07:00 06/04/24 07:11 06/04/24 07:25
Intake and Output
06/03/24 06/04/24 06/05/24
06:59 06:59 06:59
Intake Total 1465.0 / 1465.0 2014.0 / 2089.0 75 / 75
Output Total 1075 / 1075 225 / 225
Balance 390.0 / 390.0 1790.0 / 1865.0 75 / 75
SaO2 92
Nasal Cannula flow liters per 2
minute
Physical Exam
General: Comfortable and Other (Large neck, left facial droop)
HEENT: Normocephalic and Anicteric
Cardiovascular: S1-S2, Regular Rhythm, Murmur (n) and Rub (n)
Respiratory: Wheeze (n), Crackles (n), Rhonchi (n) and Non-Labored Respirations
GI: Soft, Non Distended (Obese) and Non Tender
Neurology: Awake, Alert and No Motor Deficits (Left facial droop. Muscle strength 5/5)
Skin: Good Color, Cyanosis (n), Jaundice (n) and Rash (Chronic venous stasis changes lower extremity)
Labs/Micro/Reports
Lab Data
06/04/24 03:06
06/04/24 03:06
--- NOTE | 2024-06-04 08:43 | W.PN.HOSP.TC ---
Today's Communication/Plan
-
see plan
Assessment / Plan
Assessment / Plan
Gen: NAD, AAOx3.
Eyes: EOMI, PERRLA, no scleral icterus.
Neck: supple.
CV: continues to remain RRR, +S1/S2, no m/r/g.
Resp: continues to remain CTAB, no rales, wheezes, or rhonchi.
Abd: +BS, soft, NT, ND
Skin: No rashes.
Neuro: remains L-facial droop. / LUE/LLE
Psych: Normal mood and affect.
CT brain: Acute intraparenchymal hemorrhage of the posterior right lentiform nucleus and posterior limb of the right internal capsule.
Echo: Normal left ventricular size with hyperdynamic systolic function. LVEF 75%. Mild concentric left ventricular hypertrophy. Mild aortic regurgitation. Dilated aortic root of 4.3 cm. No prior study available for comparison.
MRI brain: Focal area of acute intracranial hemorrhage on the right, at the junction of the posterior aspect of the right lentiform nucleus and the posterior limb of the right internal capsule. This appears similar to CT examination from earlier
this same date. Small rim of surrounding edema.
CTA brain: Stable small acute right intracranial hemorrhage as described above. No definitive aneurysm nor vascular abnormality noted.
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
-UDS NEG
-IV labetalol given in ER followed by Nicardipine gtt with goal SBP 140-160 initially, now goal SBP 120-140, currently running at 15mg/hr
-all imaging above
-cont statin
-BP has improved, most recent BP 154/67
-Lisinopril 10mg daily started 06/03/24
-start HCTZ 25mg daily
Other problems:
Obesity due to excess calories
Alcohol use: Pt reports 10 drinks/week. cont thiamine/folate.
RN updated
FULL/SCDs
Anticipated Discharge: 24 - 48 hours
Subjective/Interval History
-
Date of Service: June 04, 2024
Objective Data
-
Labs:
Laboratory Results
06/04/24
03:06
WBC 10.0
Hgb 15.6
Hct 43.1
Plt Count 194
Sodium 142
Potassium 4.1
Chloride 104
Carbon Dioxide 26
BUN 18
Creatinine 0.8
Glucose 120 H
Calcium 9.3
Vital Signs:
Vital Signs
Temp Pulse Resp BP Pulse Ox
98.1 F 81 20 154/67 93
06/04/24 03:21 06/04/24 08:00 06/04/24 08:00 06/04/24 07:30 06/04/24 08:00
I&O
06/03/24 06/04/24 06/05/24
06:59 06:59 06:59
Intake Total 1465.0 / 1465.0 2014.0 / 0.0 377.5 / 377.5
Output Total 1075 / 1075 225 / 225
Balance 390.0 / 390.0 1790.0 / 1865.0 377.5 / 377.5
[2024-06-04] MEDS: ORETIC 25 MG PO (09:22)
--- NOTE | 2024-06-04 09:28 | PN.CDI ---
CDI
- -
CDI:
Physician Documentation Request
Admit Date: 06/02/24 10:14
Dear Doctor Herbert,
Clinical Indicators:
The diagnosis of vasogenic edema was included in the signed head CT.
06/[address], '...acute intraparenchymal hemorrhage in the right basal ganglia... Mild surrounding vasogenic edema.'
/ Brain MRI, 'Focal area of acute intracranial hemorrhage on the right... Small rim of surrounding edema.'
NIHSS q shift, Neuro checks q4h
Please indicate in your progress notes if you are in agreement that the above diagnosis is valid for this patient:
Vasogenic edema is a valid diagnosis (Please include it in your progress notes)
Vasogenic edema is not a valid diagnosis for this patient
Other, please specify
Use of terms such as suspected, likely, concern for, or probable are acceptable for a diagnosis that is being evaluated, monitored or treated as if it exists and can be coded in the inpatient setting, when documented at the time of discharge.
Thank you,
Re Layne RN BSN
CDI Specialist
available via tiger text
Please use your independent medical judgment in providing your response.
--- NOTE | 2024-06-04 12:52 | W.PN.NEURO.1 ---
Today's Communication / Plan
-
.
Subjective/Objective
Subjective Data
Date of Service: June 04, 2024
Neurology follow-up note.
Mr. Peng reports no new motor deficits, headache, change in vision sensation.
Blood pressure has normalized
Brain MRI showed no evidence of acute infarcts in addition to known basal ganglia hemorrhage.
TTE-no evidence of PFO or intra cardiac thrombus
LDL�109, hemoglobin A1c�5.6, U-Tox�negative.
CTA head�a bulbous appearance to the basilar tip, no evidence of aneurysm or malformations.
PMH: R BG ICH(06/2024), HTN, BMI 38.
PSH: [place] teeth extraction
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
FH: Mother of natural causes, father had cancer
All:NKDA
ROS: Positive for left facial weakness, dysarthria. Negative for headache, change in vision or sensation.
General: Well developed. In no acute distress.
Cardio: Regular rate. Extremities are without cyanosis or edema.
Neuro:
Mental Status: Alert, oriented to person, place, and date. Follows complex requests. Comprehension, naming, and repetition intact. Anxious mood.
Cranial Nerves: Pupils are equally round and reactive to light. EOMs full. Visual fan full to confrontation. No ptosis. No nystagmus. Mild-mod L CN VII weakness. Reduced hearing on the right the palate elevated well. SCMs and traps 5/5.
Tongue midline. No dysarthria.
Motor: Minimal left arm drift. The rest of the strength�5 out of 5
Sensory: Normal vibration at the toes
Coordination: Normal fine finger movements on the left, no dysmetria
Gait: deferred
Assessment and Plan:
I. Acute right lentiform nucleus/posterior limb of the right internal capsule intraparenchymal hemorrhage. 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
II. HTN
III. Cerebral microvascular disease
- Continue telemetry
- Blood pressure goal�normotension
- Follow-up carotid artery Doppler ultrasound
-Okay to start chemical DVT prophylaxis
-Outpatient sleep study
-Regularly monitor blood pressure, cholesterol, and glucose levels, and follow up with healthcare provider
-Engage in regular physical activity, aiming for at least 150 minutes of moderate-intensity aerobic exercise per week
-Adopt a heart-healthy diet, such as the DASH or Mediterranean diet
-Limit alcohol intake to moderate levels (up to one drink per day for women and two for men).
-Please contact neurology service with any questions or concerns.
-Outpatient neurology follow-up.
�
I personally reviewed all radiology and labs along with past medical records pertinent to current medical problems. Total time spent in patient care is 35 minutes.
Thank you for allowing us to participate in the care of this patient. Please do not hesitate to contact us with any questions or concerns
Objective Data
Vital Signs
Temp Pulse Resp BP Pulse Ox
37.0 C 70 19 133/60 91
06/04/24 12:03 06/04/24 11:00 06/04/24 11:00 06/04/24 11:00 06/04/24 11:00
Lab Results
06/04/24 03:06
06/04/24 03:06
PT 13.4 Sec (11.4-14.6) 06/02/24 10:28
INR 0.97 06/02/24 10:28
APTT 31.3 Sec (23.4-35.0) 06/02/24 10:28
Sodium 142 mmol/L (135-145) 06/04/24 03:06
Potassium 4.1 mmol/L (3.5-5.1) 06/04/24 03:06
BUN 18 mg/dl (9-20) 06/04/24 03:06
Glucose 120 mg/dl (70-99) H 06/04/24 03:06
Calcium 9.3 mg/dl (8.4-10.2) 06/04/24 03:06
LDL Cholesterol, Calc 109 mg/dl 06/03/24 03:27
Ur Buprenorphine Negative (Negative) 06/02/24 17:07
Patient Allergies
No Known Allergies Allergy (Unverified 06/02/24 09:24)
Vital Signs and Labs
-
Vital Signs and Labs:
Vital Signs
Temp Pulse Resp BP Pulse Ox
37.0 C 70 19 133/60 91
06/04/24 12:03 06/04/24 11:00 06/04/24 11:00 06/04/24 11:00 06/04/24 11:00
Lab Results
06/04/24 03:06
06/04/24 03:06
PT 13.4 Sec (11.4-14.6) 06/02/24 10:28
INR 0.97 06/02/24 10:28
APTT 31.3 Sec (23.4-35.0) 06/02/24 10:28
Sodium 142 mmol/L (135-145) 06/04/24 03:06
Potassium 4.1 mmol/L (3.5-5.1) 06/04/24 03:06
BUN 18 mg/dl (9-20) 06/04/24 03:06
Glucose 120 mg/dl (70-99) H 06/04/24 03:06
Calcium 9.3 mg/dl (8.4-10.2) 06/04/24 03:06
LDL Cholesterol, Calc 109 mg/dl 06/03/24 03:27
Ur Buprenorphine Negative (Negative) 06/02/24 17:07
Medications
-
Medications:
Generic Name Dose Route Start Last Admin
Trade Name Freq PRN Reason Stop Dose Admin
Acetaminophen 650 mg 06/02/24 10:49
Acetaminophen 650 Mg Rectal Suppository RECTAL 06/30/24 10:48
Q4HPRN PRN
NUNN, mild pain, or temp >100.4F
Acetaminophen 650 mg 06/02/24 10:49 06/02/24 16:59
Acetaminophen 325 Mg Tablet PO 06/30/24 10:48 650 mg
Q4HPRN PRN Administration
NUNN, mild pain, or temp >100.4F
Atorvastatin Calcium 40 mg 06/02/24 18:00 06/03/24 18:17
Atorvastatin (Lipitor) 40 Mg Tablet PO 06/30/24 17:59 40 mg
QPM WOO Administration
Folic Acid 1 mg 06/02/24 17:00 06/04/24 07:12
Folic Acid 1 Mg Tablet PO 06/30/24 16:59 1 mg
DAILY WOO Administration
Hydrochlorothiazide 25 mg 06/04/24 09:00 06/04/24 09:22
Hydrochlorothiazide 25 Mg Tablet PO 07/02/24 08:59 25 mg
DAILY WOO Administration
Nicardipine/Sodium Chloride 40 mg in 200 mls @ 0 mls/hr 06/02/24 10:49 06/04/24 11:32
Cardene IV 200 mls
PER PROTOCOL WOO Administration
Protocol
Per Protocol
Lisinopril 10 mg 06/03/24 13:00 06/04/24 07:11
Lisinopril 10 Mg Tablet PO 07/01/24 12:59 10 mg
DAILY WOO Administration
Sodium Chloride 0 flush 06/02/24 11:00
Sodium Chloride 0.9% (Flush) Syringe IV 06/30/24 10:59
PER PROTOCOL WOO
Thiamine HCl 100 mg 06/02/24 20:00 06/04/24 07:11
Thiamine 100 Mg Tablet PO 06/30/24 19:59 100 mg
BID WOO Administration
Home Medications
-
Home Medications
No Meds [No Current Medications] 06/02/24
--- NOTE | 2024-06-04 14:49 | CM ---
CM following re: discharge planning.
Reviewed pt's chart, met with pt.
Per Rounds meeting, pt has been clinically improved and will be downgraded from ICU.
PT and OT continue recommending outpatient therapy. Pt is aware, expressed his agreement and he stated he will come to for outpatient PT, OT, ST.
IMM reviewed, placed on chart, pt has a copy.
Please provide a script for outpatient PT, OT, ST.
D/C plan: home with outpatient therapy at and family support. Spouse to transport at discharge.
CM will follow with discharge plan updates as hospitalization progresses
--- NOTE | 2024-06-04 15:00 | PTCARENOTE ---
transfer orders to tele noted. Per reid Moreno to be weaned to off, see intervention. pt aware, verbalizing appropriately. to tele pack. feeling more mobile. to bathroom a few times, flatus and urine, no BM so far today.
--- NOTE | 2024-06-04 17:10 | TRANSFER ---
report to next RN, taken via wc to room 424. Neuro handoff in room. In good spirits but tearful upon transfer, encouragement/support given. Verbalizing gratitude.
--- NOTE | 2024-06-04 17:15 | PTCARENOTE ---
06/04- Patient transferred and oriented to unit without issue. AAOX3; NIH currently=3 (see NIH assessment); Telemetry #44- currently NSR. Patient denies any current needs.
[2024-06-04] MEDS: LIPITOR 40 MG PO (18:05)
[2024-06-04] MEDS: APRESOLINE 10 MG IV (18:05)
[2024-06-05 03:00] VITALS: BP 145/55
[2024-06-05] MEDS: ORETIC 25 MG PO (07:34)
[2024-06-05] MEDS: FOLVITE 1 MG PO (07:34)
[2024-06-05] MEDS: ZESTRIL 10 MG PO ×2 (07:34→11:58)
[2024-06-05] MEDS: VITAMIN B1 100 MG PO ×2 (07:34→19:50)
[2024-06-05 07:50] VITALS: BP 155/67
[2024-06-05 08:44] LABS: Hematocrit 43.2 % (39.0-52.0); Hemoglobin 15.7 g/dL (13.0-18.0); Mean Corp Hgb Conc. 36.3 g/dL (33.0-37.0); Mean Corpuscular Hgb 36.2 pg (27.0-31.0); Mean Corpuscular Volume 99.5 fL (80.0-94.0); Mean Platelet Volume 8.7 fL (7.4-10.4); Platelet Count 215 10^3/uL (130-400); Red Blood Cell Count 4.34 10^6/uL (4.70-6.10); Red Cell Dist. Width 11.9 % (11.5-14.5); White Blood Cell Count 10.3 10^3/uL (4.8-10.8)
[2024-06-05 09:15] LABS: Blood Urea Nitrogen 16 mg/dl (9-20); Calcium 9.5 mg/dl (8.4-10.2); Carbon Dioxide 24 mmol/L (22-30); Chloride 102 mmol/L (98-107); Estimated Creatinine Clearance > 125 ml/min; Glucose 130 mg/dl (70-99); Potassium 4.1 mmol/L (3.5-5.1); Sodium 140 mmol/L (135-145); eGFR > 60.00
--- NOTE | 2024-06-05 11:03 | W.PN.HOSP.TC ---
Today's Communication/Plan
-
see plan
Assessment / Plan
Assessment / Plan
Gen: NAD, AAOx3.
Eyes: EOMI, PERRLA, no scleral icterus.
Neck: supple.
CV: RRR, +S1/S2, no m/r/g.
Resp: CTAB, no rales, wheezes, or rhonchi.
Abd: +BS, soft, NT, ND
Skin: No rashes.
Neuro: continues to remain L-facial droop. / LUE/LLE
Psych: Normal mood and affect.
CT brain: Acute intraparenchymal hemorrhage of the posterior right lentiform nucleus and posterior limb of the right internal capsule.
Echo: Normal left ventricular size with hyperdynamic systolic function. LVEF 75%. Mild concentric left ventricular hypertrophy. Mild aortic regurgitation. Dilated aortic root of 4.3 cm. No prior study available for comparison.
MRI brain: Focal area of acute intracranial hemorrhage on the right, at the junction of the posterior aspect of the right lentiform nucleus and the posterior limb of the right internal capsule. This appears similar to CT examination from earlier
this same date. Small rim of surrounding edema.
CTA brain: Stable small acute right intracranial hemorrhage as described above. No definitive aneurysm nor vascular abnormality noted.
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
-UDS NEG
-IV labetalol given in ER followed by Nicardipine gtt with initial goal SBP 140-160, then goal SBP 120-140. Nicardipine gtt stopped 06/04/24.
-all imaging above
-cont statin
-BP has improved overall
-Lisinopril 10mg daily started 06/03/24AM
-HCTZ 25mg daily started 06/04/24
-Increase Lisinopril to 20mg daily
-c/s PMR
Other problems:
Obesity due to excess calories
Alcohol use: Pt reports 10 drinks/week. cont thiamine/folate.
FULL/SCDs
Anticipated Discharge: 24 - 48 hours
Subjective/Interval History
-
Date of Service: June 05, 2024
No new complaints.
Objective Data
-
Labs:
Laboratory Results
06/05/24
07:29
WBC 10.3
Hgb 15.7
Hct 43.2
Plt Count 215
Sodium 140
Potassium 4.1
Chloride 102
Carbon Dioxide 24
BUN 16
Creatinine 0.8
Glucose 130 H
Calcium 9.5
Vital Signs:
Vital Signs
Temp Pulse Resp BP Pulse Ox
97.4 F 73 15 155/67 94
06/05/24 07:50 06/05/24 07:50 06/05/24 07:50 06/05/24 07:50 06/05/24 07:50
I&O
06/04/24 06/05/24 06/06/24
06:59 06:59 06:59
Intake Total 2014.0 / 2089.0 / 2039.
Output Total 225 / 225
Balance 1790.0 / 5.0 2039.0 / 2039.0
[2024-06-05 11:24] VITALS: BP 149/64
[2024-06-05 14:17] VITALS: BP 155/67; PULSE 87; O2SAT 96
[2024-06-05 14:59] VITALS: BP 152/74
[2024-06-05] MEDS: LIPITOR 40 MG PO (17:20)
[2024-06-05 23:00] VITALS: BP 166/70
[2024-06-06 01:36] VITALS: BP 146/72
[2024-06-06 06:56] LABS: Hematocrit 42.3 % (39.0-52.0); Hemoglobin 15.3 g/dL (13.0-18.0); Mean Corp Hgb Conc. 36.2 g/dL (33.0-37.0); Mean Corpuscular Volume 99.5 fL (80.0-94.0); Mean Platelet Volume 8.7 fL (7.4-10.4); Platelet Count 204 10^3/uL (130-400); Red Blood Cell Count 4.25 10^6/uL (4.70-6.10); Red Cell Dist. Width 11.9 % (11.5-14.5)
[2024-06-06 07:28] LABS: Blood Urea Nitrogen 19 mg/dl (9-20); Calcium 9.7 mg/dl (8.4-10.2); Carbon Dioxide 25 mmol/L (22-30); Chloride 104 mmol/L (98-107); Estimated Creatinine Clearance > 125 ml/min; Glucose 120 mg/dl (70-99); Potassium 4.1 mmol/L (3.5-5.1); Sodium 141 mmol/L (135-145); eGFR > 60.00
[2024-06-06 07:48] VITALS: BP 153/56
[2024-06-06] MEDS: ZESTRIL 20 MG PO (09:07)
[2024-06-06] MEDS: ORETIC 25 MG PO (09:07)
[2024-06-06] MEDS: VITAMIN B1 100 MG PO ×2 (09:08→20:07)
[2024-06-06] MEDS: FOLVITE 1 MG PO (09:08)
[2024-06-06 11:37] VITALS: BP 130/61
--- NOTE | 2024-06-06 12:24 | W.PN.HOSP.TC ---
Today's Communication/Plan
-
see plan
Assessment / Plan
Assessment / Plan
Gen: NAD, AAOx3.
Eyes: EOMI, PERRLA, no scleral icterus.
Neck: supple.
CV: remains RRR, +S1/S2, no m/r/g.
Resp: remains CTAB, no rales, wheezes, or rhonchi.
Abd: +BS, soft, NT, ND
Skin: No rashes.
Neuro: L-facial droop improved from yesterday. 06/05 LUE/LLE
Psych: Normal mood and affect.
CT brain: Acute intraparenchymal hemorrhage of the posterior right lentiform nucleus and posterior limb of the right internal capsule.
Echo: Normal left ventricular size with hyperdynamic systolic function. LVEF 75%. Mild concentric left ventricular hypertrophy. Mild aortic regurgitation. Dilated aortic root of 4.3 cm. No prior study available for comparison.
MRI brain: Focal area of acute intracranial hemorrhage on the right, at the junction of the posterior aspect of the right lentiform nucleus and the posterior limb of the right internal capsule. This appears similar to CT examination from earlier
this same date. Small rim of surrounding edema.
CTA brain: Stable small acute right intracranial hemorrhage as described above. No definitive aneurysm nor vascular abnormality noted.
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
-UDS NEG
-IV labetalol given in ER followed by Nicardipine gtt with initial goal SBP 140-160, then goal SBP 120-140. Nicardipine gtt stopped 06/04/24.
-all imaging above
-cont statin
-BP has improved overall
-Lisinopril 10mg daily started 06/03/24
-HCTZ 25mg daily started 06/04/24
-Lisinopril increased to 20mg daily 06/05/24AM
-c/s PMR
Other problems:
Obesity due to excess calories
Alcohol use: Pt reports 10 drinks/week. cont thiamine/folate.
FULL/SCDs
Anticipated Discharge: Within 24 hours
Subjective/Interval History
-
Date of Service: June 06, 2024
No new complaints.
Objective Data
-
Labs:
Laboratory Results
06/06/24
06:37
WBC 10.0
Hgb 15.3
Hct 42.3
Plt Count 204
Sodium 141
Potassium 4.1
Chloride 104
Carbon Dioxide 25
BUN 19
Creatinine 0.8
Glucose 120 H
Calcium 9.7
Vital Signs:
Vital Signs
Temp Pulse Resp BP Pulse Ox
98.6 F 72 16 130/61 91
06/06/24 11:37 06/06/24 11:37 06/06/24 11:37 06/06/24 11:37 06/06/24 11:37
I&O
06/05/24 06/06/24 06/07/24
06:59 06:59 06:59
Intake Total 2040.0 / 2040.0 1200 / 1200
Balance 2040.0 / 2040.0 1200 / 1200
[2024-06-06 14:37] VITALS: BP 140/82
--- NOTE | 2024-06-06 14:58 | PTCARENOTE ---
Assumed care of pt from previous nurse. pt denies pain. Pt Stroke Scale is 2, no change from previous score. Pt with facial droop and mild slurring. Pt call luong is within reach, pt rings silvina. will cont to monitor.
[2024-06-06 15:36] VITALS: BP 156/68
--- NOTE | 2024-06-06 16:01 | CM ---
CM reviewed chart, PT recommending outpatient therapy, will need script for outpatient PT, OT, ST. CM will continue to follow for all discharge planning needs.
Plan; home, will need script for outpatient therapy
[2024-06-06] MEDS: LIPITOR 40 MG PO (18:02)
[2024-06-06] MEDS: COLACE 100 MG PO (20:07)
[2024-06-07 00:27] VITALS: BP 126/46
[2024-06-07 07:37] VITALS: BP 161/70
[2024-06-07 08:21] LABS: Hematocrit 44.2 % (39.0-52.0); Mean Corp Hgb Conc. 36.2 g/dL (33.0-37.0); Mean Corpuscular Hgb 35.8 pg (27.0-31.0); Mean Corpuscular Volume 98.9 fL (80.0-94.0); Platelet Count 213 10^3/uL (130-400); Red Blood Cell Count 4.47 10^6/uL (4.70-6.10); Red Cell Dist. Width 11.9 % (11.5-14.5); White Blood Cell Count 9.1 10^3/uL (4.8-10.8)
[2024-06-07] MEDS: COLACE 100 MG PO (08:41)
[2024-06-07] MEDS: FOLVITE 1 MG PO (08:41)
[2024-06-07] MEDS: ORETIC 25 MG PO (08:41)
[2024-06-07] MEDS: ZESTRIL 20 MG PO (08:41)
[2024-06-07] MEDS: VITAMIN B1 100 MG PO (08:41)
[2024-06-07 08:56] LABS: Blood Urea Nitrogen 20 mg/dl (9-20); Calcium 9.8 mg/dl (8.4-10.2); Carbon Dioxide 27 mmol/L (22-30); Chloride 102 mmol/L (98-107); Estimated Creatinine Clearance > 125 ml/min; Glucose 117 mg/dl (70-99); Potassium 4.1 mmol/L (3.5-5.1); Sodium 139 mmol/L (135-145); eGFR > 60.00
--- NOTE | 2024-06-07 10:50 | CM ---
Addendum entered by Sayda Vaca 06/07/24 15:38:
Patient also set up with [facility]
[phone]
fax [phone]
Original Note:
Chart reviewed and casework manager met with patient this morning plan is to home when stable, needs script for outpatient PT/OT.
Plan; Home no needs.
--- NOTE | 2024-06-07 11:29 | W.PN.HOSP.TC ---
Addendum entered and electronically signed by Obdulio Godinez MD 06/07/24 12:29:
vasogenic edema
Original Note:
Today's Communication/Plan
-
d/c
Assessment / Plan
Assessment / Plan
Gen: NAD, AAOx3.
Eyes: EOMI, PERRLA, no scleral icterus.
Neck: supple.
CV: continues to remain RRR, +S1/S2, no m/r/g.
Resp: continues to remain CTAB, no rales, wheezes, or rhonchi.
Abd: +BS, soft, NT, ND
Skin: No rashes.
Neuro: L-facial droop similar to yesterday. 06/05 LUE/LLE
Psych: Normal mood and affect.
CT brain: Acute intraparenchymal hemorrhage of the posterior right lentiform nucleus and posterior limb of the right internal capsule.
Echo: Normal left ventricular size with hyperdynamic systolic function. LVEF 75%. Mild concentric left ventricular hypertrophy. Mild aortic regurgitation. Dilated aortic root of 4.3 cm. No prior study available for comparison.
MRI brain: Focal area of acute intracranial hemorrhage on the right, at the junction of the posterior aspect of the right lentiform nucleus and the posterior limb of the right internal capsule. This appears similar to CT examination from earlier
this same date. Small rim of surrounding edema.
CTA brain: Stable small acute right intracranial hemorrhage as described above. No definitive aneurysm nor vascular abnormality noted.
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
-UDS NEG
-IV labetalol given in ER followed by Nicardipine gtt with initial goal SBP 140-160, then goal SBP 120-140. Nicardipine gtt stopped 06/04/24.
-all imaging above
-cont statin
-BP has improved overall
-Lisinopril 10mg daily started 06/03/24AM
-HCTZ 25mg daily started 06/04/24
-Lisinopril increased to 20mg daily 06/05/24AM
-start Norvasc 5mg daily (06/07/24)
Other problems:
Obesity due to excess calories
Alcohol use: Pt reports 10 drinks/week. cont thiamine/folate.
FULL/SCDs
Medically cleared for discharge.
Total time spent on d/c = 34 min. This included today's physical exam, progress note, review of laboratory and diagnostic data, preparation of discharge documents and prescriptions, and discussions about the pt's hospital course and discharge plan
with the patient and other chief medical officer involved in the patient's care.
Anticipated Discharge: Today
Subjective/Interval History
-
Date of Service: June 07, 2024
No new complaints.
Objective Data
-
Labs:
Laboratory Results
06/07/24
07:13
WBC 9.1
Hgb 16.0
Hct 44.2
Plt Count 213
Sodium 139
Potassium 4.1
Chloride 102
Carbon Dioxide 27
BUN 20
Creatinine 0.8
Glucose 117 H
Calcium 9.8
Vital Signs:
Vital Signs
Temp Pulse Resp BP Pulse Ox
98.5 F 64 18 161/70 96
06/07/24 07:37 06/07/24 07:37 06/07/24 07:37 06/07/24 07:37 06/07/24 07:37
I&O
06/06/24 06/07/24 06/08/24
06:59 06:59 06:59
Intake Total 1200 / 1200 960 / 960
Balance 1200 / 1200 960 / 960
[2024-06-07 12:42] VITALS: BP 142/70
[2024-06-07] MEDS: NORVASC 5 MG PO (12:43)
--- NOTE | 2024-06-07 13:43 | W.DCSUMMARY ---
Discharge Summary
Discharge Data
Date of Admission: 06/02/24
Date of Discharge: 06/07/24
-
Pending Results: No
Hospital Course
Primary diagnoses:
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
Secondary diagnoses:
Obesity due to excess calories
Alcohol use
Consultants:
Neurology
Imaging:
CT brain: Acute intraparenchymal hemorrhage of the posterior right lentiform nucleus and posterior limb of the right internal capsule.
Echo: Normal left ventricular size with hyperdynamic systolic function. LVEF 75%. Mild concentric left ventricular hypertrophy. Mild aortic regurgitation. Dilated aortic root of 4.3 cm. No prior study available for comparison.
MRI brain: Focal area of acute intracranial hemorrhage on the right, at the junction of the posterior aspect of the right lentiform nucleus and the posterior limb of the right internal capsule. This appears similar to CT examination from earlier
this same date. Small rim of surrounding edema.
CTA brain: Stable small acute right intracranial hemorrhage as described above. No definitive aneurysm nor vascular abnormality noted.
68-year-old male presented with chief complaint of left facial droop as outlined in the H&P done on admission. Hospital course per problem list:
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 IV labetalol was given in ER followed by Nicardipine gtt with initial goal SBP 140-160, then goal SBP 120-140. Nicardipine gtt stopped 06/04/24. The patient was
initiated on a statin. The patient was started on oral antihypertensive medications which were titrated upwards while hospitalized. At the time of discharge she is on hydrochlorothiazide, lisinopril, Norvasc. The patient is being discharged in
medically stable condition.
Discharge Plan
-
Patient Disposition: Home (Routine Discharge)
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
Condition: Good
Diet: Low Cholesterol and 2 Gram Sodium
Activity: As tolerated
Driving Restrictions: Not until seen by your Dr
Referrals:
Amanda Rodriguez CRNP [Non-Admitting Privileges] -
(needs eval in sleep clinic in 1-2 mo with HST and Rx as indicated
High suspicion for BERHANE)
UNKNOWN - PT NOT,INTERVIEWE [Family Provider] - in less than 1 week
Prescriptions:
New
atorvastatin 40 mg Tablet
40 mg PO QPM Qty: 30 0RF
lisinopril 20 mg Tablet
20 mg PO DAILY Qty: 30 0RF
amlodipine 5 mg Tablet
5 mg PO DAILY Qty: 30 0RF
folic acid 1 mg Tablet
1 mg PO DAILY Qty: 0 0RF
hydrochlorothiazide 25 mg Tablet
25 mg PO DAILY Qty: 30 0RF
thiamine mononitrate (vit B1) 100 mg Tablet
100 mg PO BID Qty: 0 0RF
Discharge Orders:
Discharge Patient (As Directed); Ordered 06/07/24
Ordered By: Obdulio Godinez
Discharge Date and Time
Print Language: AZERI
== END 2024-06-07 16:29 | disposition home or self-care (01) | DRG 64 ==
LOC: 4 WEST ACU 10:14
PROVIDERS: ADMITTING PHYSICIAN Internal Medicine; CONSULT PHYSICIAN Psychiatry & Neurology Neurology; EMERGENCY PHYSICIAN Emergency Medicine; OTHER PHYSICIAN Internal Medicine Critical Care Medicine
DX: I62.9 Nontraumatic intracranial hemorrhage, unspecified (principal); G93.6 Cerebral edema; I16.1 Hypertensive emergency; G83.10 Monoplegia of lower limb affecting unspecified side; R29.810 Facial weakness; R47.81 Slurred speech; R29.703 NIHSS score 3; I35.1 Nonrheumatic aortic (valve) insufficiency; E66.09 Other obesity due to excess calories; F10.90 Alcohol use, unspecified, uncomplicated; Z68.38 Body mass index [BMI] 38.0-38.9, adult
CPT/HCPCS: 70450; 70496; 70551; 71045; 80048; 80053; 80061; 80306; 82962; 83036; 85025; 85027; 85610; 85730; 86803; 92507; 92523; 92526; 92610; 93005; 93306; 93880; 96365; 96375; 96376; 97116; 97129; 97163; 97167; 99291; Q9950; Q9967

== ENCOUNTER → 2024-07-09 13:35 | Outpatient (REF) | payer MEDICARE, SELFPAY | LOC: RAD 13:35 | PROVIDERS: ATTENDING PHYSICIAN Nurse Practitioner Family | DX: R60.0 Localized edema (principal) | CPT/HCPCS: 93971 ==

== ENCOUNTER → 2024-08-03 17:42 | Outpatient (REF) | payer MEDICARE, SELFPAY | LOC: DHSLP 17:42 | PROVIDERS: ATTENDING PHYSICIAN Internal Medicine; FAMILY PHYSICIAN Family Medicine | DX: G47.33 Obstructive sleep apnea (adult) (pediatric) (principal) | CPT/HCPCS: 95800 ==